=== PATIENT | female | born 1960 | race Caucasian/White ===

== ENCOUNTER → 2018-07-15 13:04 | Outpatient (CLI) | payer OTHER, SELFPAY ==
--- NOTE | 2018-07-15 | DI.MG.S_ITS ---
BILATERAL DIGITAL DIAGNOSTIC MAMMOGRAM 3D/2D WITH ADDITIONAL VIEWS: 07/15/2018 CLINICAL: Additional evaluation requested from prior study. Bilateral. Comparison is made to exams dated: 04/15/2018 mammogram - [facility], 07/02/2016 mammogram [facility], and 04/09/2012 mammogram - [facility]. The tissue of both breasts is heterogeneously dense. This may lower the sensitivity of mammography. There is a focal asymmetry in the right breast at 1 o'clock middle depth. This is seen in additional views. There is a focal asymmetry in the left breast at 11 o'clock middle depth. This is seen in additional views. No other significant masses or calcifications are seen in either breast. IMPRESSION: INCOMPLETE: NEEDS ADDITIONAL IMAGING EVALUATION The focal asymmetry in the right breast at 1 o'clock middle depth is indeterminate. The focal asymmetry in the left breast at 11 o'clock middle depth is indeterminate. A targeted ultrasound of the bilateral breasts is recommended and will be performed immediately following this exam. This exam was interpreted at Station ID: [id number]. NOTE: For mammograms, a report in lay terms will be sent to the patient. Approximately 15% of breast malignancies will not be visualized mammographically. In the management of a palpable breast mass, a negative mammogram must not discourage biopsy of a clinically suspicious lesion. Electronically Signed By: Ceci hernandez/:07/15/2018 14:00:43 letter sent: Additional Imaging Needed ACR BI-RADS Category 0: Incomplete 3340F
--- NOTE | 2018-07-15 | DI.US.S_ITS ---
ULTRASOUND OF LEFT BREAST: 07/15/2018 CLINICAL: Patient returns for additional imaging over a suspected mass in the left breast. Comparison is made to exams dated: 07/15/2018 [facility], 04/15/2018 mammogram - [facility], and 07/02/2016 [facility]. Color flow and real-time ultrasound of the left breast were performed on the areas of interest. Hannah scale images of the real-time examination were reviewed. There is a benign 0.5 cm x 0.3 cm x 0.7 cm oval cyst in the left breast at 11 o'clock middle depth. This oval cyst is anechoic. This correlates with mammography findings. IMPRESSION: BENIGN There is no sonographic evidence of malignancy. The 0.5 cm x 0.3 cm x 0.7 cm oval cyst in the left breast is benign. A 1 year screening mammogram is recommended. This exam was interpreted at Station ID: [id number]. Electronically Signed By: Ceci hernandez/:07/15/2018 15:46:14 letter sent: Normal Exam Ultrasound BI-RADS: 2 Benign
--- NOTE | 2018-07-15 | DI.US.S_ITS ---
ULTRASOUND OF RIGHT BREAST: 07/15/2018 CLINICAL: Patient returns for additional imaging over a suspected mass in the right breast. Comparison is made to exams dated: 07/15/2018 mammogram - [facility], 04/15/2018 mammogram - [facility], and 07/02/2016 [facility]. Color flow and real-time ultrasound of the right breast were performed on the areas of interest. Hannah scale images of the real-time examination were reviewed. There is a benign 0.4 cm x 0.3 cm x 0.4 cm cyst in the right breast at 3 o'clock posterior depth. This cyst is anechoic. This correlates with mammography findings. IMPRESSION: BENIGN There is no sonographic evidence of malignancy. The 0.4 cm x 0.3 cm x 0.4 cm cyst in the right breast is benign. A 1 year screening mammogram is recommended. This exam was interpreted at Station ID: [id number]. Electronically Signed By: Ceci hernandez/:07/15/2018 15:44:29 letter sent: Normal Exam Ultrasound BI-RADS: 2 Benign
== END ==
PROVIDERS: Family Provider Family Medicine; PCP Family Medicine; Visit Provider Family Medicine
DX: R92.8 Other abnormal and inconclusive findings on diagnostic imaging of breast (principal); N60.02 Solitary cyst of left breast; N60.01 Solitary cyst of right breast
CPT/HCPCS: 76642; 77066; G0279

== ENCOUNTER → 2022-10-29 08:21 | Outpatient (CLI) | payer OTHER, SELFPAY ==
[2022-10-29 19:51] LABS: Add Manual Diff / Slide Review NO; Basophils Absolute Auto 0 /uL (0-100); Basophils Percent Auto 1.1 % (0-2); Eosinophils Absolute Auto 100 /uL (0-450); Eosinophils Percent Auto 4.1 % (2-4); Hematocrit 41.1 % (36-46); Hemoglobin 13.6 g/dL (12.0-16.0); Lymphocytes Absolute Auto 1300 /uL (1100-4500); Lymphocytes Percent Auto 35.8 % (25-40); Mean Corpuscular Hemoglobin 30.3 PG (26-34); Mean Corpuscular Volume 91.6 fL (80-100); Monocytes Absolute Auto 300 /uL (0-900); Monocytes Percent Auto 7.5 % (3-14); Neutrophils Absolute Auto 1900 /uL (1500-7000); Neutrophils Percent Auto 51.5 % (50-75); Platelet Count 209 X10^3/uL (150-400); Red Blood Cell Count 4.49 X10^6/uL (4.0-5.2); Red Cell Distribution Width 12.6 % (11.6-14.8); White Blood Cell Count 3.6 X10^3/uL (4.5-11.0)
[2022-10-29 20:10] LABS: Alanine Aminotransferase 26 IU/L (<35); Albumin Globulin Ratio 1.4 (1.0-2.8); Alkaline Phosphatase 56 U/L (38-126); Aspartate Aminotransferase 20 IU/L (14-36); BUN Creatinine Ratio 21.9 (6-22); Bilirubin Total 0.7 mg/dL (0.2-1.3); Blood Urea Nitrogen 14 mg/dL (7-17); C-Reactive Protein Quant < 0.5 mg/dL (<1.0); Calcium 8.7 mg/dL (8.4-10.2); Carbon Dioxide 34 mmol/L (22-32); Chloride 99 mmol/L (98-107); Cholesterol 188 mg/dL (140-199); Estimated Glomerular Filt Rate > 60 mL/min (>60); Globulin 2.8 g/dL (1.7-4.1); Glucose 95 mg/dL (80-110); HDL Cholesterol 45 mg/dL (40-60); HEMOLYSIS < 15 (0-50); LDL Cholesterol Calculated 120 mg/dL (<100); Potassium 4.2 mmol/L (3.4-5.1); Sodium 137 mmol/L (137-145); Total Protein 6.8 g/dL (6.3-8.2); Triglycerides 113 mg/dL (35-150)
[2022-10-29 20:37] LABS: Erythrocyte Sedimentation Rate 2 MM/HR (0-20); TSH w/ Reflex to FT4 2.44 uIU/mL (0.47-4.68)
[2022-10-31 17:28] LABS: CCP Antibodies IgG/IgA 3 units (0-19)
== END ==
PROVIDERS: Family Provider Family Medicine; PCP Physician Assistant; Visit Provider Physician Assistant
DX: G89.29 Other chronic pain (principal); M79.7 Fibromyalgia
CPT/HCPCS: 80053; 80061; 84443; 85025; 85651; 86140; 86200

== ENCOUNTER → 2023-09-27 10:01 | Outpatient (CLI) | payer OTHER, SELFPAY ==
--- NOTE | 2023-09-27 10:03 | DI.MG.S_ITS ---
BILATERAL DIGITAL SCREENING MAMMOGRAM 3D/2D WITH CAD: 09/27/2023 CLINICAL: Routine screening. Comparison is made to exams dated: 07/15/2018 ultrasound, 07/15/2018 ultrasound, 07/15/2018 mammogram - [facility], 04/15/2018 mammogram - [facility], 07/02/2016 mammogram - [facility], and 04/09/2012 mammogram - [facility]. Both breasts are heterogeneously dense, which may obscure small masses (category c / 51-75% glandular tissue). Current study was also evaluated with a Computer Aided Detection (CAD) system. No significant masses, calcifications, or other findings are seen in either breast. There has been no significant interval change. IMPRESSION: NEGATIVE There is no mammographic evidence of malignancy. A 1 year screening mammogram is recommended. Based on the Tyrer Cuzick model (a risk assessment model) the patient's lifetime risk is 11.7% and her 10 year risk is 5.3%. According to the ACR, ACS, and NCCN guidelines, an annual breast MRI exam along with mammogram is recommended if the patient's lifetime risk is 20% or greater. This exam was interpreted at Station ID: [id number]. NOTE: For mammograms, a report in lay terms will be sent to the patient. Approximately 15% of breast malignancies will not be visualized mammographically. In the management of a palpable breast mass, a negative mammogram must not discourage biopsy of a clinically suspicious lesion. Electronically Signed By: Ceci hernandez/jacquelyn:09/27/2023 11:37:05 letter sent: Normal Exam ACR BI-RADS Category 1: Negative 3341F
== END ==
PROVIDERS: Family Provider Family Medicine; PCP Family Medicine; Referring Provider Family Medicine; Visit Provider Family Medicine
DX: Z12.31 Encounter for screening mammogram for malignant neoplasm of breast (principal); R92.333 Mammographic heterogeneous density, bilateral breasts
CPT/HCPCS: 77063; 77067

== ENCOUNTER 2024-04-14 08:28 | Day surgery (SDC) | payer OTHER, SELFPAY ==
[2024-04-14] MEDS: LACTATED RINGERS 1,000 ML 42 ML IV (08:59)
[2024-04-14 09:04] VITALS: BP 136/73; PULSE 58; RESP 16; TEMP 36.7; O2SAT 100
--- NOTE | 2024-04-14 09:50 | P.HP_ITS ---
History of Present Illness History of Present Illness Date Patient Seen: 04/14/24 Time Patient Seen: 09:50 Chief complaint: Screening Colonoscopy Narrative: 63-year-old woman family history of colon cancer here for screening colonoscopy. Last colonoscopy 5 years ago. No abdominal concerns today. 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 Meds Home Medications and Allergies Home Medications Medication Instructions Recorded Confirmed Type albuterol sulfate 90 mcg/actuation 1 puff INH PRN ##8.5 06/27/12 04/14/24 History aerosol inhaler (Proventil HFA) diphenhydramine HCl 50 mg capsule 50 mg PO PRN ##0 07/07/12 04/14/24 History ondansetron HCl 4 mg tablet 4 mg PO Q8H 10/23/22 04/14/24 History promethazine 25 mg tablet 25 mg PO TID PRN Nausea 10/23/22 04/14/24 History cyclobenzaprine 10 mg tablet 10 mg PO BEDTIME #90 tabs 08/22/23 04/14/24 Rx doxycycline hyclate 100 mg capsule 100 mg PO DAILY start 2 d before, 08/28/23 04/14/24 Rx daily during,& daily 4wks after #90 caps estradiol 0.1 mg/24 hr weekly 1 patch transdermal QWEEK #12 ea 11/27/23 04/14/24 Rx transdermal patch Allergies Allergy/AdvReac Type Severity Reaction Status Date / Time No Known Drug Allergies Allergy Verified 04/14/24 09:14 Exam Vital Signs (past 8 hours): - 04/14/24 09:04 Temperature 98.1 F Pulse Rate 58 L Respiratory Rate 16 Blood Pressure 136/73 Pulse Oximetry 100 Oxygen Delivery Method Room Air Oxygen Delivery Method Room Air Narrative Exam Narrative: General adult woman alert oriented no acute distress Chest nonlabored respiration Extremities warm well perfused Assessment & Plan Assessment & Plan narrative: The patient requires colorectal screening and colonoscopy is recommended. Technical details were discussed. Risks, benefits, alternatives explained. Risks including but not limited to myocardial infarction, aspiration, bleeding, pain, missed lesion, incomplete examination, need for further radiographic studies, intestinal injury, and need for major abdominal surgery were discussed. All questions were answered to their satisfaction, and they are in agreement with this plan. Time-Based Coding :: [TOTAL MINUTES] spent with patient and on the chart (including review of chart, obtaining history, exam, reviewing outside data, placing orders, documenting exam and treatment plan, and counseling patient) on [DATE].
--- NOTE | 2024-04-14 09:55 | P.OP.COLON_ITS ---
Operative Date/Time/Diagnoses Date of procedure: 04/14/24 Time of procedure: 09:55 Pre-op diagnosis: Family history of colon cancer Procedure & Clinicians Study performed: Screening colonoscopy Same procedure as scheduled: Yes Indications: Family history of colon cancer Colorectal screening Surgeon: Deric Garcia Procedure Notes Procedure in detail: The history and physical was performed/updated and the patient is ASA class is 2. The procedure was discussed in detail with the patient. Potential risks complications including infection, bleeding, missed diagnosis, perforation, need for surgery, and were explained. Their questions were answered and inform ed consent was obtained. Patient was brought to the procedure room and placed standard monitoring equipment. The patient's vital signs were monitored continuously throughout the entire procedure. Prior to starting time-out was performed. The patient was placed in the left lateral recumbent position. Procedural sedation was administered by anesthesia. Examination began with a thorough inspection of the perianal area there was no evidence of fissures, fistulae, external hemorrhoids or cutaneous malignancy. The colonoscopy scope was then placed into the anal canal and was advanced to the cecum, which was identified by the ileocecal valve, the appendiceal orifice and the confluence of the taenia. The scope was then slowly withdrawn examining colon thoroughly in all directions, irrigating it of any residual stool. The scope was retroflexed within the rectum The patient tolerated the procedure well. They will be discharged once criteria are met. The prep was of good/excellent quality. The withdrawl time was 7 minutes. FINDINGS * Unremarkable colonoscopy. Normal healthy colonic mucosa without mass or polyps. Specimen(s): none sent Impression: Normal colonoscopy Post-procedure Recommendations: Colonoscopy in 5 years Disposition: same day surgery
[2024-04-14 10:15] VITALS: BP 120/73; PULSE 73; RESP 16; TEMP 36.2; O2SAT 98
[2024-04-14 10:20] VITALS: BP 120/73; PULSE 73; RESP 16; O2SAT 98
[2024-04-14 10:25] VITALS: BP 128/77; PULSE 68; RESP 16; TEMP 36.8; O2SAT 98
== END 2024-04-14 10:37 | disposition home or self-care (01) ==
PROVIDERS: Family Provider Family Medicine; PCP Family Medicine; Referring Provider Surgery; Visit Provider Surgery
PROC: 0DJD8ZZ Inspection of Lower Intestinal Tract, Via Natural or Artificial Opening Endoscopic (ICD-10-PCS; CPT 45378; principal; 2024-04-14 09:45)
DX: Z12.11 Encounter for screening for malignant neoplasm of colon (principal); Z80.0 Family history of malignant neoplasm of digestive organs
CPT/HCPCS: 45378; J2704

== ENCOUNTER → 2024-08-27 10:24 | Outpatient (CLI) | payer OTHER, SELFPAY ==
[2024-08-27 20:24] LABS: Add Manual Diff / Slide Review NO; Basophils Absolute Auto 0 /uL (0-100); Basophils Percent Auto 0.7 % (0-2); Eosinophils Absolute Auto 100 /uL (0-450); Eosinophils Percent Auto 3.7 % (2-4); Hematocrit 39.2 % (36-46); Hemoglobin 13.1 g/dL (12.0-16.0); Lymphocytes Absolute Auto 1300 /uL (1100-4500); Lymphocytes Percent Auto 40.7 % (25-40); Mean Corpuscular HGB Conc 33.4 % (30-36); Mean Corpuscular Hemoglobin 30.7 PG (26-34); Mean Corpuscular Volume 91.9 fL (80-100); Monocytes Absolute Auto 400 /uL (0-900); Monocytes Percent Auto 12.7 % (3-14); Neutrophils Absolute Auto 1300 /uL (1500-7000); Neutrophils Percent Auto 42.2 % (50-75); Platelet Count 241 X10^3/uL (150-400); Red Blood Cell Count 4.26 X10^6/uL (4.0-5.2); White Blood Cell Count 3.1 X10^3/uL (4.5-11.0)
[2024-08-27 20:27] LABS: Alanine Aminotransferase 25 IU/L (<35); Albumin 4.3 g/dL (3.5-5.0); Albumin Globulin Ratio 1.6 (1.0-2.8); Alkaline Phosphatase 63 U/L (38-126); Aspartate Aminotransferase 40 IU/L (14-36); BUN Creatinine Ratio 25.6 (6-22); Bilirubin Total 0.5 mg/dL (0.2-1.3); Blood Urea Nitrogen 21 mg/dL (7-17); Calcium 9.1 mg/dL (8.4-10.2); Carbon Dioxide 31 mmol/L (22-32); Chloride 100 mmol/L (98-107); Cholesterol 216 mg/dL (140-199); Estimated Glomerular Filt Rate > 60 mL/min (>60); Globulin 2.7 g/dL (1.7-4.1); Glucose 95 mg/dL (80-110); HDL Cholesterol 49 mg/dL (40-60); HEMOLYSIS < 15 (0-50); LDL Cholesterol Calculated 158 mg/dL (<100); Potassium 4.1 mmol/L (3.4-5.1); Sodium 136 mmol/L (137-145); Triglycerides 47 mg/dL (35-150)
[2024-08-27 20:59] LABS: Thyroid Stimulating Hormone 1.44 uIU/mL (0.47-4.68)
== END ==
PROVIDERS: Family Provider Family Medicine; PCP Family Medicine; Visit Provider Family Medicine
DX: E78.5 Hyperlipidemia, unspecified (principal); Z79.890 Hormone replacement therapy
CPT/HCPCS: 80053; 80061; 84443; 85025

== ENCOUNTER → 2024-10-09 09:57 | Outpatient (CLI) | payer OTHER, SELFPAY ==
--- NOTE | 2024-10-09 09:58 | DI.MG.S_ITS ---
US axillary only lt, MM diagnostic mammo BI: 10/09/2024 BI-RADS: 2 CLINICAL: 64-year old female for bilateral diagnostic mammogram and left diagnostic breast ultrasound. Tyrer-Cuzick lifetime risk of 10.2%. No personal or first-degree family history of breast cancer. The patient reports a palpable abnormality (6 months) in the left axilla. PRIOR EXAMS 09/27/2023, 07/15/2018, 07/02/2016. MAMMOGRAPHY TECHNIQUE: 2D and 3D (tomosynthesis) digital mammographic views obtained, with additional images as needed for full coverage. Current study was also evaluated with a Computer Aided Detection (CAD) system. ULTRASOUND TECHNIQUE: Exam is limited to the left axilla. Real-time bartlett scale and color doppler imaging of the area of clinical interest was performed with image documentation. DENSITY C. The breasts are heterogeneously dense, which may obscure small masses. MAMMOGRAPHY FINDINGS Left (finding-1): MLO only, Axilla, measuring 4.3 cm: Underlying surface marker and correlating with palpable lump there is a fat-containing mass present. Bilateral: No suspicious mass, asymmetry, microcalcification, or other abnormality seen. ULTRASOUND FINDINGS Left (finding-1): Axilla, measuring 5.4 x 1.1 x 4.5 cm: Correlating with findings on mammogram there is an oval, isoechoic mass. Doppler shows no vascularity. This mass demonstrates features characteristic of a benign lipoma. No abnormal lymph nodes are seen in the axilla. IMPRESSION: Right * No evidence of malignancy. Left * No evidence of malignancy with benign findings. RECOMMENDATIONS Left: Axilla * Clinical follow-up is recommended for the patient's benign lipoma. Bilateral * Annual screening mammography in one year. OVERALL ASSESSMENT CATEGORY BI-RADS-2: Benign. The [employer] recommends annual screening mammography beginning at age 40 for women with average risk of breast cancer. ELECTRONICALLY SIGNED: Karon Miller M.D. on 10/09/2024 at 03:06:22 PM PT Interpreting Station ID: [id number]
== END ==
LOC: MAMMO 09:57
PROVIDERS: Family Provider Family Medicine; PCP Family Medicine; Referring Provider Family Medicine; Visit Provider Family Medicine
DX: Z12.31 Encounter for screening mammogram for malignant neoplasm of breast (principal); Z12.9 Encounter for screening for malignant neoplasm, site unspecified; D17.9 Benign lipomatous neoplasm, unspecified; R92.333 Mammographic heterogeneous density, bilateral breasts
CPT/HCPCS: 76882; 77066; G0279

== ENCOUNTER → 2025-05-25 10:20 | Outpatient (CLI) | payer MEDICARE, OTHER, SELFPAY ==
[2025-05-25 19:01] LABS: Alanine Aminotransferase 33 IU/L (<35); Albumin 4.1 g/dL (3.5-5.0); Albumin Globulin Ratio 1.6 (1.0-2.8); Alkaline Phosphatase 69 U/L (38-126); Blood Urea Nitrogen 25 mg/dL (7-17); Calcium 9.3 mg/dL (8.4-10.2); Carbon Dioxide 32 mmol/L (22-32); Chloride 100 mmol/L (98-107); Cholesterol 209 mg/dL (140-199); Estimated Glomerular Filt Rate > 60 mL/min (>60); Globulin 2.6 g/dL (1.7-4.1); Glucose 94 mg/dL (70-99); HDL Cholesterol 48 mg/dL (40-60); HEMOLYSIS 17 (0-50); Potassium 4.5 mmol/L (3.4-5.1); Sodium 137 mmol/L (137-145); Total Protein 6.7 g/dL (6.3-8.2); Triglycerides 67 mg/dL (35-150)
[2025-05-25 19:08] LABS: Add Manual Diff / Slide Review NO; Hematocrit 39.2 % (36-46); Hemoglobin 12.9 g/dL (12.0-16.0); Lymphocytes Absolute Auto 1400 /uL (1100-4500); Mean Corpuscular HGB Conc 32.9 % (30-36); Mean Corpuscular Hemoglobin 29.9 PG (26-34); Mean Corpuscular Volume 91.0 fL (80-100); Platelet Count 226 X10^3/uL (150-400)
[2025-05-25 19:31] LABS: TSH w/ Reflex to FT4 1.86 uIU/mL (0.47-4.68)
[2025-05-25 19:45] LABS: HIV 1 & 2 Ab/Ag 4th Gen Combo NEGATIVE (NEGATIVE); Hep C Virus Ab w/Reflex Quant NEGATIVE s/c (NEGATIVE)
== END ==
PROVIDERS: Family Provider Family Medicine; PCP Family Medicine; Visit Provider Physician Assistant
DX: E78.5 Hyperlipidemia, unspecified (principal); M79.7 Fibromyalgia; G47.01 Insomnia due to medical condition; Z79.899 Other long term (current) drug therapy; Z11.4 Encounter for screening for human immunodeficiency virus [HIV]; Z11.59 Encounter for screening for other viral diseases
CPT/HCPCS: 80053; 80061; 84443; 85025; 86803; 87389